=== PATIENT | female | born 1985 | race Caucasian/White ===

== ENCOUNTER 2023-11-26 09:36 | Emergency (ER) | payer SELFPAY ==
[2023-11-26 09:50] VITALS: BP 141/96
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
[2023-11-26] MEDS: MOTRIN 600 MG PO (11:18)
[2023-11-26 12:16] VITALS: BP 113/82
== END 2023-11-26 12:18 | disposition home or self-care (01) ==
LOC: EMR 09:36
PROVIDERS: EMERGENCY PHYSICIAN Emergency Medicine; FAMILY PHYSICIAN Nurse Practitioner Adult Health
DX: M25.571 Pain in right ankle and joints of right foot (principal); M25.551 Pain in right hip; J34.89 Other specified disorders of nose and nasal sinuses; V40.5XXA Car driver injured in collision with pedestrian or animal in traffic accident, initial encounter; Y92.410 Unspecified street and highway as the place of occurrence of the external cause; J45.909 Unspecified asthma, uncomplicated; N83.209 Unspecified ovarian cyst, unspecified side; E28.2 Polycystic ovarian syndrome
CPT/HCPCS: 99284; 70160; 73130; 73502; 73610

== ENCOUNTER → 2024-11-03 15:55 | Outpatient (REF) | payer BC, SELFPAY | LOC: HWRCS 15:55 | PROVIDERS: ATTENDING PHYSICIAN Internal Medicine Cardiovascular Disease; FAMILY PHYSICIAN Nurse Practitioner Adult Health | DX: R55 Syncope and collapse (principal) | CPT/HCPCS: 93306 ==